=== PATIENT | female | born 2000 | race Two or more races ===

== ENCOUNTER 2022-09-11 08:16 | Emergency (ER) | payer OTHER ==
[~2022-09-11] VITALS: Ht 162.6 cm; Wt 75.7 kg
== END 2022-09-11 11:35 | disposition home or self-care (01) ==
LOC: ER 08:16
DX: O21.8 Other vomiting complicating pregnancy (principal); Z3A.08 8 weeks gestation of pregnancy; Z20.822 Contact with and (suspected) exposure to COVID-19